=== PATIENT | female | born 1945 | race Caucasian/White ===

== ENCOUNTER → 2017-04-17 | Outpatient (CLI) | payer MEDICARE ==
--- NOTE | ~2017-04-17 | MY11 ---
[facility] A Service [facility] RADIOLOGY TEXT RESULTS PATIENT: GWYN VERMA LOCATION: [facility] : 45 UNIT #: [id number] AGE: [address]: Jeri Whelan MD SEX: F ORDER DR: [id number] [place] [id number] MR#: [id number] Acc #: [id number] NAME: GWYN VERMA : 1945 SEX: F STUDY DATE/TIME: 04/17/2017 14:10 UNIT: [facility] ROOM: STUDY DESCRIPTION: MY Mammogram Screening Dig [facility] Attending Physician: Jeri Whelan M.D. Referring Physician: Jeri Whelan M.D. Ordering Physician: Jeri Whelan M.D. Primary Care Physician: Kenyon Chi M.D. MEDICAL IMAGING REPORT This report is preliminary unless electronic signature is present. EXAM Digital screening mammogram 04/17/2017 [facility] HISTORY 71-year-old woman, no risk elevation. Known bilateral nipple inversion. COMPARISON Mammograms date to 11/18/2005 FINDINGS Digital imaging of each breast was completed utilizing a two-view examination of each breast in craniocaudal and mediolateral-oblique projections. Review and interpretation of digital mammograms include a second review in conjunction with FDA-approved CAD device. There is a normal parenchymal presentation bilaterally consistent with the patient's age. There are no breast masses imaged and no parenchymal asymmetry is visualized. There are no suspicious microcalcifications and I see no focal architectural disturbance. IMPRESSION Negative screening digital mammogram. One-year followup recommended. Patients over the age of 40 are entered into a reminder system with target due date for the next mammogram. A result letter will also be sent to the patient. BIRADS: 1 Negative Dictated by... Karl Rick M.D. [facility] A Service [facility] RADIOLOGY TEXT RESULTS PATIENT: GWYN VERMA LOCATION: [facility] : 45 UNIT #: [id number] AGE: [address]: Jeri Whelan MD SEX: F ORDER DR: THIS IS AN ELECTRONICALLY VERIFIED REPORT Karl Rick M.D. at 04/18/2017 8:10 AM JBB/levy TD: 04/17/2017 21:56 JOB #: [id number] MEDICAL IMAGING REPORT Page 1 of 1
== END | disposition home or self-care (01) ==
LOC: SMAM 13:40
DX: Z12.31 Encounter for screening mammogram for malignant neoplasm of breast (principal)
CPT/HCPCS: G0202